=== PATIENT | male | born 1955 | race Caucasian/White ===

== ENCOUNTER → 2024-02-23 17:54 | Outpatient (BNVA) | payer MEDICARE, SELFPAY | PROVIDERS: PCP Family Medicine; Visit Provider Family Medicine | DX: J44.9 Chronic obstructive pulmonary disease, unspecified (principal) | CPT/HCPCS: 87426 ==

== ENCOUNTER → 2024-05-07 14:55 | Outpatient (BNVA) | payer MEDICARE, SELFPAY | PROVIDERS: PCP Family Medicine; Visit Provider Family Medicine | DX: I10 Essential (primary) hypertension (principal); E78.00 Pure hypercholesterolemia, unspecified | CPT/HCPCS: 80053; 80061; 85025 ==

== ENCOUNTER → 2024-05-10 09:54 | Outpatient (BNVA) | payer MEDICARE, SELFPAY | PROVIDERS: PCP Family Medicine; Referring Provider Family Medicine; Visit Provider Surgery | DX: R10.12 Left upper quadrant pain (principal); Z80.0 Family history of malignant neoplasm of digestive organs; Z98.890 Other specified postprocedural states; Z12.11 Encounter for screening for malignant neoplasm of colon | CPT/HCPCS: 99204 ==

== ENCOUNTER → 2024-05-24 11:16 | Outpatient (BNVA) | payer MEDICARE, SELFPAY | PROVIDERS: PCP Family Medicine; Visit Provider Student in an Organized Health Care Education/Training Program | DX: Z12.11 Encounter for screening for malignant neoplasm of colon (principal) | CPT/HCPCS: 99024; 99204 ==

== ENCOUNTER 2024-05-30 03:41 | Emergency (ER) | payer MEDICARE, SELFPAY ==
[2024-05-30 03:44] VITALS: BP 108/69; PULSE 83; RESP 18; TEMP 36.2; O2SAT 89; BMI 27.6
--- NOTE | 2024-05-30 03:44 | XRR_ITS ---
PROCEDURE INFORMATION: Exam: XR Chest Exam date and time: 05/30/2024 3:56 AM Age: 69 years old Clinical indication: Shortness of breath; Additional info: Weakness TECHNIQUE: Imaging protocol: Radiologic exam of the chest. Views: 1 view. COMPARISON: No relevant prior studies available. FINDINGS: Lungs: The lungs are hyperinflated with hyperlucency of the upper lungs. No infiltrates are identified. Pleural spaces: Unremarkable. No pleural effusion. No pneumothorax. Heart/Mediastinum: Unremarkable. No cardiomegaly. Bones/joints: Unremarkable. XR/XR chest 1V portable [id number] IMPRESSION: COPD. No evidence of acute pulmonary process.
--- NOTE | 2024-05-30 03:49 | CTR_ITS ---
PROCEDURE INFORMATION: Exam: CT Head Without Contrast Exam date and time: 05/30/2024 4:04 AM Age: 69 years old Clinical indication: Other: Passed out after using restroom; Additional info: Fall, head injury TECHNIQUE: Imaging protocol: Computed tomography of the head without contrast. Radiation optimization: All CT scans at this facility use at least one of these dose optimization techniques: automated exposure control; mA and/or kV adjustment per patient size (includes targeted exams where dose is matched to clinical indication); or iterative reconstruction. COMPARISON: No relevant prior studies available. RADIATION DOSE METRICS: Total DLP (mGy-cm): 1265.18 FINDINGS: Brain: There is no evidence of acute parenchymal hemorrhage, extra-axial collection, or acute infarction. There is no mass effect, midline shift, or downward herniation. Cerebral ventricles: No ventriculomegaly. Paranasal sinuses: Visualized sinuses are unremarkable. No fluid levels. Mastoid air cells: Visualized mastoid air cells are well aerated. Bones: Unremarkable. No acute fracture. Soft tissues: Unremarkable. CT/CT head wo con* [id number] IMPRESSION: No acute intracranial abnormality.
--- NOTE | 2024-05-30 03:53 | ECG_ITS ---
[facility] Test Date: 2024-05-30 Pat Name: Zaire Viera Department: Room: Gender: Male Patient Financial Counselor: : 1955 Requested By: Annel Valenzuela Order Number: [id number] Pavan MD: Sriram Davis M.D. Measurements Intervals [place] Rate: 79 P: 66 CO: 178 QRS: 81 QRSD: 94 T: 80 QT: 390 QTc: 448 Interpretive Statements SINUS RHYTHM possible old septal MD No previous ECG available for comparison Electronically Signed On 05-30-2024 12:31:30 CDT by Sriram Davis M.D. [email or web address]
--- NOTE | 2024-05-30 03:54 | W.ED.FALL ---
HPI - Fall General: Chief Complaint: Fall Stated Complaint: DIZZY, SYNCOPE Time Seen by Provider: 05/30/24 03:44 History of Present Illness: 69-year-old man with a history of hypertension, BPH, COPD who presents to the emergency room by ambulance after having a syncopal episode. Apparently had a few beers and some bag early on the night. He had gotten up to go to the bathroom and heard him pass out. He says he does not remember. EMS reports that he was hypotensive on their presentation. He is received three quarters of a liter of fluid and blood pressure is improving. He says he feels better now. Does not know if he hit his head. He wears nighttime oxygen. Right now he is on 3 L. Related Data Home Medications ?Medication ?Instructions ?Recorded ?Confirmed budesonide 160 mcg-glycopyr 9 2 inh inhalation BID 02/12/21 05/24/24 mcg-formot 4.8 mcg/actuation HFA inhaler ([employer]) rosuvastatin 5 mg tablet 5 mg PO DAILY 11/18/23 05/24/24 tamsulosin 0.4 mg capsule 0.4 mg PO DAILY 11/18/23 05/24/24 albuterol sulfate 0.63 mg/3 mL 0.63 mg inhalation Q6H 02/23/24 05/24/24 solution for nebulization albuterol sulfate 90 mcg/actuation 1 inh inhalation QID 02/23/24 05/24/24 breath activated powder inhaler Previous Rx's ?Medication ?Instructions ?Recorded hydrochlorothiazide 25 mg tablet 25 mg PO DAILY #90 tabs 04/14/24 amlodipine 5 mg tablet 5 mg PO DAILY #90 tabs 05/18/24 Allergies Allergy/AdvReac Type Severity Reaction Status Date / Time losartan Allergy ALGY-Anaphy Verified 05/30/24 03:48 laxis Penicillins Allergy unknown Verified 05/30/24 03:48 Review of Systems Narrative: Constitutional symptoms: Negative except as documented in HPI. Skin symptoms: Negative except as documented in HPI. Eye symptoms: Negative except as documented in HPI. ENMT symptoms: Negative except as documented in HPI. Respiratory symptoms: Negative except as documented in HPI. Cardiovascular symptoms: Negative except as documented in HPI. Gastrointestinal symptoms: Negative except as documented in HPI. Genitourinary symptoms: Negative except as documented in HPI. Musculoskeletal symptoms: Negative except as documented in HPI. Neurologic symptoms: Negative except as documented in HPI. Psychiatric symptoms: Negative except as documented in HPI. Endocrine symptoms: Negative except as documented in HPI. PFSH ED PFSH: Medical History Prostate cancer seeing Dr. Mckeon urology at [facility] Nicotine dependence, cigarettes, in remission LDCT 09.23.23 at [facility]; sees camera maker [facility] 03.24.23 neg Family history of colon cancer in mother BPH (benign prostatic hyperplasia) Hypertension High cholesterol COPD (chronic obstructive pulmonary disease) Hx of coronary angiogram has had 2--no intervention Surgical History Hx of colonoscopy 5.3.18; Q5yrs due to family hx History of oral surgery cyst in mouth--benigng History of repair of pyloric stenosis Hx of parotidectomy left; no cancer Hx of hemorrhoidectomy History of cholecystectomy Family History Mother Heart disease Colon cancer Alzheimer's dementia Brother Heart disease, Onset Age: 61 Brother Heart disease, Onset Age: 57 Grandfather Stroke Social History Smoking and tobacco/nicotine status: never used tobacco/nicotine Quit status (tobacco/nicotine): has quit using Year quit tobacco: quit 2016 Former quit date comment: smoked age 16 to 61 1 ppd; 45pk yr hx; Second hand smoke exposure: No Alcohol intake: current Alcohol intake frequency: few times a week Alcohol type: beer Substance/Drug Use: never Adopted: No Caregiver/support person: No Lives independently: Yes Household members: spouse Marital status: Number of children: 2 Highest education level completed: Associate Degree: Occupational, Technical, Vocational Program Current occupational status: 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 Skin: Warm, dry. Head: Normocephalic, atraumatic. Neck: Supple, trachea midline. Eye: Extraocular movements are intact. Ears, nose, mouth and throat: mucosa moist. Cardiovascular: Regular, Normal peripheral perfusion. Respiratory: Lungs are clear to auscultation, respirations are non-labored, breath sounds are equal, Symmetrical chest wall expansion. Gastrointestinal: Soft, Nontender, Non distended Musculoskeletal: Normal ROM, no deformity. Neurological: Alert and oriented, No focal neurological deficit observed. Psychiatric: Cooperative, appropriate mood & affect. Course Vital Signs: Vital signs: Vital Signs Temperature 97.1 F L 05/30/24 03:44 Pulse Rate 78 05/30/24 04:00 Respiratory Rate 18 05/30/24 04:00 Blood Pressure 108/69 05/30/24 04:00 Pulse Oximetry 94 05/30/24 04:00 Oxygen Delivery Me thod Nasal Cannula 05/30/24 04:00 Oxygen Flow Rate 3 05/30/24 04:00 MDM - Fall Medical Decision Making Medical decision making: Differential diagnosis including but not limited to and based on the above HPI, review of systems and physical exam in this patient with syncope: Vasovagal, orthostatics hypotension, cardiac dysrhythmia, myocardial infarction, infection and hypotension, Orders placed to evaluate differential diagnosis based on the above differential, HPI and physical exam EKG: Time 3:53 AM. Rate 79. Normal sinus rhythm, No ST-T changes, no ectopy, normal CO & QRS intervals, This was reviewed and interpreted by myself the ER physician at 3:58 AM. Chest x-ray: No acute process. No infiltrate. No pneumothorax. This was reviewed and interpreted by myself the emergency room physician. I also reviewed the radiology report. CT head: No acute intracranial process. no intracranial hemorrhage, no evidence of infarct. no evidence of acute fracture.This was reviewed and interpreted by myself the ER physician. Lab Review: Laboratory results were reviewed and interpreted by myself the emergency room physician. No leukocytosis. No anemia. No renal failure. Troponin is negative. proBNP is negative. Flu COVID and RSV are negative. Patient urinated earlier and says he does not have any urinary symptoms and does not want to wait to send the urine and then wait for it to come back. No signs of infection so I am okay with this. I reviewed the patient's medical record. Reexamination: Patient remained stable. No increased work of breathing. No altered mental status. No focal motor deficits. We discussed that at night whenever he stands up to go to the bathroom to be careful. Stand by the bed initially before taking off and if he starts to feel lightheaded sit back down. Also make sure he stays hydrated. Assessment and plan: Orthostatic syncope. ?Patient received 750 mL of normal saline. Blood pressures remained stable. - Discharged home - Discussed findings and plan with patient. Answered any questions. - All laboratory values were reviewed and interpreted personally by myself, the ER physician - All imaging was reviewed and interpreted personally by myself, the ER physician. - Evaluation and treatment of this problem were appropriate in the emergency setting Lab Data 05/30/24 03:52 05/30/24 03:52 Laboratory Results WBC 7.87 10^3/uL (3.29-11.43) 05/30/24 03:52 RBC 5.22 10^6/uL (3.85-5.65) 05/30/24 03:52 Hgb 14.90 g/dL (11.27-16.99) 05/30/24 03:52 Hct 44.4 % (37-53) 05/30/24 03:52 MCV 85.1 fl (82-101) 05/30/24 03:52 MCH 28.5 pg (27-33) 05/30/24 03:52 MCHC 33.6 g/dL (30-55) 05/30/24 03:52 RDW 14.6 % (12.1-15.1) 05/30/24 03:52 Plt Count 169 10^3/cmm (157-399) 05/30/24 03:52 MPV 11.2 fL (7.4-10.4) H 05/30/24 03:52 Neut % (Auto) 63.1 % 05/30/24 03:52 Lymph % (Auto) 24.1 % 05/30/24 03:52 Gallia % (Auto) 9.3 % 05/30/24 03:52 Eos % (Auto) 2.3 % 05/30/24 03:52 Baso % (Auto) 0.8 % 05/30/24 03:52 Neut # (Auto) 4.97 10^3/uL (1.8-7.7) 05/30/24 03:52 Lymph # (Auto) 1.9 10^3/uL (0.8-4.8) 05/30/24 03:52 Gallia # (Auto) 0.7 10^3/uL (0.2-0.9) 05/30/24 03:52 Eos # (Auto) 0.2 10^3/uL (0.0-0.8) 05/30/24 03:52 Baso # (Auto) 0.1 10^3/uL (0.0-0.1) 05/30/24 03:52 Nucleated RBC % (auto) 0 % 05/30/24 03:52 Nucleated RBCs # 0.0 /100WBC 05/30/24 03:52 Sodium 136 mmol/L (136-145) 05/30/24 03:52 Potassium 3.8 mmol/L (3.5-5.1) 05/30/24 03:52 Chloride 98 mmol/L (98-107) 05/30/24 03:52 Carbon Dioxide 26 mmol/L (22-29) 05/30/24 03:52 Anion Gap 15.8 (5-19) 05/30/24 03:52 BUN 12 mg/dL (8-23) 05/30/24 03:52 Creatinine 1.0 mg/dL (0.7-1.2) 05/30/24 03:52 GFR Calculation 74.1 mL/min (90-130) L 05/30/24 03:52 Glucose 113 mg/dL (65-115) 05/30/24 03:52 Calculated Osmolality 283 mOsm/kg (285-295) L 05/30/24 03:52 Lactic Acid 2.3 mmol/L (0.5-2.2) H 05/30/24 03:52 Calcium 9.0 mg/dL (8.5-10.5) 05/30/24 03:52 Total Bilirubin 0.4 mg/dL (0.15-1.2) 05/30/24 03:52 AST 20 U/L (0-40) 05/30/24 03:52 ALT 24 U/L (0-41) 05/30/24 03:52 Alkaline Phosphatase 44 U/L (40-130) 05/30/24 03:52 Troponin T Baseline 14 ng/L (0-15) 05/30/24 03:52 C-Reactive Protein 3.0 mg/L (0.0-4.9) 05/30/24 03:52 NT-Pro-B Natriuret Pep < 36 pg/mL (0-125) 05/30/24 03:52 Total Protein 6.2 g/dL (6.6-8.7) L 05/30/24 03:52 Albumin 4.2 g/dL (3.5-5.2) 05/30/24 03:52 Globulin 2.0 g/dL (1.3-4.6) 05/30/24 03:52 Influenza A (PCR) Negative (Negative) 05/30/24 04:15 Influenza Type B (PCR) Negative (Negative) 05/30/24 04:15 RSV (PCR) Negative (Negative) 05/30/24 04:15 SARS-CoV-2 (PCR) Negative (Negative) 05/30/24 04:15 All radiology interpretation(s) finalized by discharge Discharge Plan Discharge Patient Disposition: Home Clinical Impression: Syncope, Dehydration Condition: Stable Prescriptions: No Action Breztri Aerosphere 160-9-4.8 mcg/actuation HFA aerosol inhaler 2 inh inhalation BID tamsulosin 0.4 mg capsule 0.4 mg PO DAILY rosuvastatin 5 mg tablet 5 mg PO DAILY albuterol sulfate 0.63 mg/3 mL solution for nebulization 0.63 mg inhalation Q6H albuterol sulfate 90 mcg/actuation aerosol powdr breath activated 1 inh inhalation QID hydrochlorothiazide 25 mg tablet 25 mg PO DAILY Qty: 90 3RF amlodipine 5 mg tablet 5 mg PO DAILY Qty: 90 3RF Discharge Orders: Discharge ED (Routine); Ordered 05/30/24 Ordered By: Annel Gaxiola Referrals: Lianna Hawthorne MD [Primary Care Provider] - Discharge Diet: Usual diet Discharge Activity: Increase activity as tolerated Patient Instructions: Syncope (ED), Opioid Safety, Pain Management Activity Restrictions/Additional Instructions: Thank you for choosing [facility] for your healthcare needs today. Please realize this is an emergency room and that we are providing you with a medical screening exam and this may not be complete and all inclusive of all the testing and or work up that you may need to determine your ailment or severity of your illness. You have been screened and evaluated and felt safe for discharge. Health conditions do change or evolve sometimes and as such it is important that you follow up with your Primary Doctor to be re checked, 3-5 days is a general good time frame for follow up. You are always welcome to return to the ED for re assessment if your symptoms are worsening or you have new concerns Print Language: Macedonian Coding Level of Care Code ED Patient Office Rep for Viral Stahl
[2024-05-30 04:00] VITALS: BP 108/69; PULSE 78; RESP 18; O2SAT 94
[2024-05-30 04:00] LABS: Basophils # 0.1 10^3/uL (0.0-0.1); Basophils % 0.8 %; Eosinophils # 0.2 10^3/uL (0.0-0.8); Eosinophils % 2.3 %; Hematocrit 44.4 % (37-53); Lymphocytes # 1.9 10^3/uL (0.8-4.8); Lymphocytes % 24.1 %; Mean Corpuscular HGB Conc 33.6 g/dL (30-55); Mean Corpuscular Hemoglobin 28.5 pg (27-33); Mean Corpuscular Volume 85.1 fl (82-101); Mean Platelet Volume 11.2 fL (7.4-10.4); Monocytes # 0.7 10^3/uL (0.2-0.9); Monocytes % 9.3 %; Neutrophils # 4.97 10^3/uL (1.8-7.7); Neutrophils % 63.1 %; Nucleated Red Blood Cells % 0 %; Platelet Count 169 10^3/cmm (157-399); Red Blood Count 5.22 10^6/uL (3.85-5.65); Red Cell Distribution Width 14.6 % (12.1-15.1); White Blood Count 7.87 10^3/uL (3.29-11.43)
[2024-05-30 04:19] LABS: Lactic Sepsis W/Reflex 2.3 mmol/L (0.5-2.2)
[2024-05-30 04:23] LABS: Troponin(5th) Baseline 14 ng/L (0-15)
[2024-05-30 04:30] LABS: Alanine Aminotransferase 24 U/L (0-41); Albumin Level 4.2 g/dL (3.5-5.2); Alkaline Phosphatase 44 U/L (40-130); Blood Urea Nitrogen 12 mg/dL (8-23); Carbon Dioxide 26 mmol/L (22-29); Chloride 98 mmol/L (98-107); Glomerular Filtration Rate 74.1 mL/min (90-130); Glucose 113 mg/dL (65-115); NT Pro B Type Natriuretic Pept < 36 pg/mL (0-125); Osmolality Calculated 283 mOsm/kg (285-295); Sodium 136 mmol/L (136-145); Total Bilirubin 0.4 mg/dL (0.15-1.2); Total Protein 6.2 g/dL (6.6-8.7)
[2024-05-30 04:31] LABS: Anion Gap 15.8 (5-19); Aspartate Amino Transferase 20 U/L (0-40); Potassium 3.8 mmol/L (3.5-5.1)
[2024-05-30 04:59] LABS: Influenza A NEGATIVE (Negative); Influenza B NEGATIVE (Negative); Respiratory Syncytial Virus Ce NEGATIVE (Negative); SARS-CoV-2 PCR NEGATIVE (Negative)
[2024-05-30 05:25] VITALS: BP 102/72; PULSE 87; RESP 16; O2SAT 93
[2024-05-30 05:46] LABS: Reflex Lactate Order REFLEX LACTIC ORDERD
== END 2024-05-30 05:20 | disposition home or self-care (01) ==
PROVIDERS: Emergency Provider Emergency Medicine; PCP Family Medicine
DX: R55 Syncope and collapse (principal); E86.0 Dehydration; Z11.52 Encounter for screening for COVID-19; Z87.891 Personal history of nicotine dependence; J44.9 Chronic obstructive pulmonary disease, unspecified; Z85.46 Personal history of malignant neoplasm of prostate
CPT/HCPCS: 36415; 70450; 71045; 80053; 83605; 83880; 84484; 85025; 86140; 87040; 87150; 87205; 87637; 93005; 99285

== ENCOUNTER 2024-06-05 08:22 | Day surgery (SDC) | payer MEDICARE, SELFPAY ==
[2024-06-05 08:40] VITALS: BP 132/93; PULSE 89; RESP 18; TEMP 36.4; O2SAT 95; BMI 27.6
[2024-06-05] MEDS: sodium chloride 0.9% 1,000 ML 30 ML IV (08:49)
--- NOTE | 2024-06-05 08:50 | ANES.PREANE2 ---
Pre-Anesthetic Assessment Height/Weight: Height 1.73 m Weight 82.554 kg Temp Pulse Resp BP Pulse Ox O2 Del Method 97.5 F L 89 18 132/93 95 Room Air 06/05/24 08:40 06/05/24 08:40 06/05/24 08:40 06/05/24 08:40 06/05/24 08:40 06/05/24 08:40 Operation Date: 06/05/24 09:30 Proposed Procedures p Colonoscopy 71741 G0105 Z12.11(Not Applicable) - Azam Barraza MD Was Beta Huma taken within 24 hours: N/A Was Clonidine taken within 24 hours: N/A Last intake: Intake Last Liquid Date 06/04/24 Last Liquid Time 17:00 Last Solid Date 06/03/24 Last Solid Time 18:00 Social Alcohol (beer) Exam oriented x 3 Airway Submandibular: within normal limits Cervical ROM: within normal limits Mallampati: Class III Dentition: partials Comments: Comments: upper Pulmonary Chronic Obstructive Pulmonary Disease night o2 CV/HEM Hypertension Anesthetic Plan ASA status: 3 (home O2 for COPD) Risk of > 500 ml blood loss (7ml/kg in children): No Medications/Allergies Home Medications ?Medication ?Instructions ?Recorded ?Confirmed ?Last Taken ?Type budesonide 160 mcg-glycopyr 9 2 inh inhalation BID 02/12/21 05/30/24 05/29/24 History mcg-formot 4.8 mcg/actuation HFA inhaler (Breztri Aerosphere) rosuvastatin 5 mg tablet 5 mg PO DAILY 11/18/23 05/30/24 05/29/24 History tamsulosin 0.4 mg capsule 0.4 mg PO DAILY 11/18/23 05/30/24 05/29/24 History albuterol sulfate 0.63 mg/3 mL 0.63 mg inhalation Q6H PRN 02/23/24 05/30/24 06/05/24 07:00 History solution for nebulization Shortness Of Breath Or Wheezing albuterol sulfate 90 mcg/actuation 1 inh inhalation QID PRN Shortness 02/23/24 05/30/24 06/05/24 07:00 History breath activated powder inhaler Of Breath Or Wheezing (ProAir RespiClick) hydrochlorothiazide 25 mg tablet 25 mg PO DAILY #90 tabs 0205/30/24 05/29/24 Rx amlodipine 5 mg tablet 5 mg PO DAILY #90 tabs 05/18/24 05/30/24 05/29/24 Rx sildenafil 1 tab PO PRN PRN Sexual Activity 05/30/24 05/30/24 Unknown History Allergies Allergy/AdvReac Type Severity Reaction Status Date / Time losartan Allergy ALGY-Anaphy Verified 06/05/24 08:35 laxis Penicillins Allergy unknown Verified 06/05/24 08:35 Current Medications Generic Name Dose Route Start Last Admin Trade Name Freq PRN Reason Stop Dose Admin Sodium Chloride 1,000 mls @ 30 mls/hr 06/05/24 08:45 06/05/24 08:49 Sodium Chloride 0.9% IV 30 mls/hr .Q24H FAHEEM Administration PFSH Anesthesia Medical History Prostate cancer seeing Dr. Mckeon urology at [facility] Nicotine dependence, cigarettes, in remission LDCT 09.23.23 at [facility]; sees clinical dietetic technician [facility] 03.24.23 neg Family history of colon cancer in mother BPH (benign prostatic hyperplasia) Hypertension High cholesterol COPD (chronic obstructive pulmonary disease) Hx of coronary angiogram has had 2--no intervention Surgical History Hx of colonoscopy 5.3.18; Q5yrs due to family hx History of oral surgery cyst in mouth--benigng History of repair of pyloric stenosis Hx of parotidectomy left; no cancer Hx of hemorrhoidectomy History of cholecystectomy Family History Mother Heart disease Colon cancer Alzheimer's dementia Brother Heart disease, Onset Age: 61 Brother Heart disease, Onset Age: 57 Grandfather Stroke Social History Smoking and tobacco/nicotine status: never used tobacco/nicotine Quit status (tobacco/nicotine): has quit using Year quit tobacco: quit 2016 Former quit date comment: smoked age 16 to 61 1 ppd; 45pk yr hx; Second hand smoke exposure: No Alcohol intake: current Alcohol intake frequency: few times a week Alcohol type: beer Substance/Drug Use: never Adopted: No Caregiver/support person: No Lives independently: Yes Household members: spouse Marital status: Number of children: 2 Highest education level completed: Associate Degree: Occupational, Technical, Vocational Program 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
--- NOTE | 2024-06-05 08:55 | W.PM.OPSUD ---
Surgery/Procedure H&P Update DATE OF PROCEDURE: June 05, 2024 DATE H&P PERFORMED: 05/24/24 H&P UPDATE INFORMATION: I have reviewed H&P completed within last 30 days, I have examined patient prior to procedure and No changes to prior documentation PLANNED PROCEDURE: Operation Date: 06/05/24 09:30 Proposed Procedures p Colonoscopy 96126 G0105 Z12.11(Not Applicable) - Azam Barraza MD
[2024-06-05 09:17] VITALS: BP 105/68; PULSE 84; RESP 18; TEMP 36.4; O2SAT 95
[2024-06-05 09:26] VITALS: TEMP 36.6
--- NOTE | 2024-06-05 09:45 | ANE.PACU2 ---
Inpatient post-anesthesia follow up: Airway intact: Yes Vital signs: Temperature 97.8 F Pulse Rate 84 Respiratory Rate 18 Blood Pressure 105/68 Pulse Oximetry 95 Oxygen Delivery Me thod Room Air Oxygen Flow Rate Fraction of Inspir ed Oxygen Hydration adequate: Yes Nausea and vomiting: No Pain level: 1 Mental status: Baseline
== END 2024-06-05 09:45 | disposition home or self-care (01) ==
PROVIDERS: PCP Family Medicine; Visit Provider Student in an Organized Health Care Education/Training Program
PROC: 0DJD8ZZ Inspection of Lower Intestinal Tract, Via Natural or Artificial Opening Endoscopic (ICD-10-PCS; CPT 45378; principal; 2024-06-05 09:30)
DX: Z12.11 Encounter for screening for malignant neoplasm of colon (principal); K57.30 Diverticulosis of large intestine without perforation or abscess without bleeding; I10 Essential (primary) hypertension; F17.211 Nicotine dependence, cigarettes, in remission; Z80.0 Family history of malignant neoplasm of digestive organs; J44.9 Chronic obstructive pulmonary disease, unspecified; Z99.81 Dependence on supplemental oxygen; Z79.899 Other long term (current) drug therapy
CPT/HCPCS: G0105; J2704; J3490; J7030